=== PATIENT | female | born 1985 | race Caucasian/White ===

== ENCOUNTER 2017-02-13 05:07 | Inpatient (IN) | payer OTHER ==
[2017-02-13] MEDS ORDERED: DEXTROSE 5%-LACTATED RINGERS 1,000 ML IV SCH (06:00)
[2017-02-13] MEDS: ELECTROLYTE-148 SOLN 1,000 ML IV SCH ×2 (08:30→09:30)
[2017-02-13] MEDS: FENTANYL/BUPIVACAINE/NS/PF - PCEA - 50 ML DISP.SYRIN EP SCH ×2 (08:50→18:58)
[2017-02-13 09:30] VITALS: BMI 43.9
[2017-02-13] MEDS ORDERED: VANCOMYCIN 1,000 MG in DEXTROSE 5%-WATER - 250 ML IVPB ONE (09:30)
--- NOTE | 2017-02-13 09:34 | HP ---
Past Medical History - Admission Chief Complaint: Painful contractions since 2 am. History of Present Illness: 31 y/o with SIUP at 38.6 weeks gestation here with complaints of painful contractions since 2 am. No LOF or VB upon admission. Patient has h/o prior for failure to progress/ distress and patient desires TOLAC. uncomplicated. GBS positive with PCN allergy - no sensitivities performed on GBS specimen. HIV negative. 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 Weeks Gestation by Dates: 38.6 ...EDC by Dates: 02/21/17 Heme/Onc: No: Bleeding Disorder, Sickle Cell Trait Psych: No: Bipolar, Depression Endocrine: No: Diabetes Mellitus, Hyperthyroidism - Past Surgical History Past Surgical History: Yes: None Hx Myomectomy: No Hx Transabdominal Cerclage: No - Smoking History Smoking history: Never smoked Have you smoked in the past 12 months: No - Alcohol/Substance Use Hx Alcohol Use: No History of Substance Use: reports: None - Social History Usual Living Arrangement: Yes: With Spouse ADL: Independent Home Medications - Allergies Allergies/Adverse Reactions: Allergies Allergy/AdvReac Type Severity Reaction Status Date / Time pork derived (porcine) Allergy Severe Swelling Verified 02/13/17 08:18 Pork/Porcine Containing Allergy Severe Swelling Verified 02/13/17 08:18 Products shellfish derived Allergy Severe Swelling Verified 02/13/17 08:18 Penicillins Allergy Mild Hives Verified 02/13/17 08:18 ALL FRUIT Allergy Severe Swelling Uncoded 02/13/17 08:18 - Home Medications Home Medications: Ambulatory Orders NK [No Known Home Medication] 02/13/17 Review of Systems - Review of Systems Constitutional: reports: No Symptoms Eyes: reports: No Symptoms HENT: reports: No Symptoms Neck: reports: No Symptoms Cardiovascular: reports: No Symptoms Respiratory: reports: No Symptoms Gastrointestinal: reports: Abdominal Pain (contraction pain) Genitourinary: denies: Vaginal Bleeding Breasts: reports: No Symptoms Reported Musculoskeletal: reports: No Symptoms Integumentary: reports: No Symptoms Neurological: reports: No Symptoms Endocrine: reports: No Symptoms Hematology/Lymphatic: reports: No Symptoms Psychiatric: reports: No Symptoms Physical Exam - Maternity Vital Signs: Vital Signs Temperature 97.9 F 02/13/17 05:37 Pulse Rate 87 02/13/17 05:37 Respiratory Rate 21 02/13/17 05:37 Blood Pressure 123/57 02/13/17 05:37 O2 Sat by Pulse Oximetry (%) Constitutional: Yes: Well Nourished Eyes: Yes: WNL HENT: Yes: WNL Neck: Yes: WNL Cardiovascular: Yes: WNL Lungs: Clear to auscultation Breast(s): Yes: WNL - Abdominal Exam/OB Fundal Height: 39 Number of Fetuses: Single Presentation: Vertex Contractions: Yes Regularity: Regular Intensity: Moderate Monitor Mode: External Heart Rate (range): 125 Category: I Accelerations: Uniform Decelerations: None - Vaginal Exam/OB Vaginal Bleediing: Yes, Light Dilatation (cm): 4 Effacement (%): 70 Amniotic Membrane Status: Bulging Presentation: Vertex/Position Station: -3 - Physical Exam Extremities: Yes: WNL Edema: LLE: Trace, RLE: Trace Psychiatric: Yes: Alert, Oriented Hemorrhage Risk Assessment - Risk Factors Medium Risk Factors: Yes: Prior , uterine surgery,or multiple laparotomies High Risk Factors: Yes: None Risk Score: 1 Risk Level: Medium Risk Problem List - Problems (1) Active labor at term Code(s): AWP8327 - (2) Obesity affecting Code(s): O99.210 - OBESITY COMPLICATING , UNSPECIFIED TRIMESTER (3) Encounter for trial of labor Code(s): O33.9 - MATERNAL CARE FOR DISPROPORTION, UNSPECIFIED (4) GBS (group B Streptococcus carrier), +RV culture, currently Code(s): O99.820 - STREPTOCOCCUS B CARRIER STATE COMPLICATING Assessment/Plan 31 y/o with SIUP at 38.6 weeks gestation, prior c section ,in labor for TOLAC, GBS positive - AFVSS - FHTS cat 1 - active labor at term, desires TOLAC - risks of TOLAC including uterine rupture , hemorrhage, need for emergency c section and possible need for hysterectomy discussed, pt aware, consents for TOLAC signed. Will allow to labor at this time. Expectant management - GBS positive, PCN allergy - hives - no sensitivities on rectovaginal culture completed - will start vancomycin - close monitoring
[2017-02-13 10:09] LABS: BASOPHIL 0.3 % (0-2.0); EOSINOPHIL 0.7 % (0-4.5); MCH 25.5 pg (25.7-33.7); MCHC 32.1 g/dl (32.0-36.0); MEAN CELL VOLUME 79.5 fl (80-96); MEAN PLT VOLUME 7.9 fl (7.5-11.1); NEUTROPHILS 66.9 % (42.8-82.8); PLATELET COUNT 231 K/MM3 (134-434); WHITE BLOOD COUNT 6.3 K/mm3 (4.0-10.0)
[2017-02-13 10:16] LABS: CALCIUM 8.5 mg/dL (8.5-10.1); COCKROFT - GAULT 229.1855; CREATININE 0.6 mg/dL (0.55-1.02)
[2017-02-13 10:20] LABS: INR 1.08 (0.82-1.09); PROTHROMBIN TIME (PATIENT) 11.9 SEC (9.98-11.88)
[2017-02-13 10:23] LABS: ACTIVATED PTT 30.9 SECONDS (26.9-34.4)
--- NOTE | 2017-02-13 14:15 | PN ---
Ante-Partal Exam - Subjective Subjective: pt comfortable with epidural Vital Signs: Vital Signs Temperature 98.2 F 02/13/17 13:56 Pulse Rate 77 02/13/17 13:15 Respiratory Rate 20 02/13/17 13:15 Blood Pressure 126/71 02/13/17 13:15 O2 Sat by Pulse Oximetry (%) 98 02/13/17 13:15 Bleeding: No Headache: No Visual changes: No Right upper quadrant pain: No - Contractions Contractions: Yes Regularity: Regular Intensity: Moderate Monitor Mode: External - Exam during Labor Heart Rate: 125 Variability: Moderate Category: I Monitor Accelerations: Present Monitor Decelerations: None Exam: Vaginal Dilatation (cm): 5 Effacement (%): 70 Amniotic Membrane Status: Intact Nitrazine Test: Positive Amniotic Fluid: Clear Presentation: Vertex Station: -3 - Assessment/Plan Assessment/Plan: 31 y/o with SIUP at 38.6 weeks here in labor, for TOLAC - AFVSS - FHTS cat 1 - TOLAC, continue expectant management. Head not engaged to cervix, no AROm at this time, will await for head to be more applied to cervix - GBS positive, s/p vancomycin X 1 dose, continue current management
[2017-02-13] MEDS ORDERED: VANCOMYCIN 1,000 MG in DEXTROSE 5%-WATER - 250 ML IVPB SCH (21:30)
--- NOTE | 2017-02-13 22:00 | PN ---
Ante-Partal Exam - Subjective Subjective: Pt with contractions & epidural Vital Signs: Vital Signs Temperature 98.2 F 02/13/17 15:00 Pulse Rate 89 02/13/17 18:58 Respiratory Rate 20 02/13/17 18:58 Blood Pressure 106/47 02/13/17 18:58 O2 Sat by Pulse Oximetry (%) 100 02/13/17 18:58 Bleeding: No Headache: No Visual changes: No Right upper quadrant pain: No - Contractions Contractions: Yes Regularity: Irregular Intensity: Mild/Mod Monitor Mode: External - Exam during Labor Variability: Moderate Category: I Monitor Accelerations: Present Monitor Decelerations: None Exam: Vaginal Dilatation (cm): 5 Effacement (%): 100 Amniotic Membrane Status: Intact Presentation: Vertex Station: -2 - Intrapartum Hemorrhage Risk High Risk Factors: None Risk Score: 0 Risk Level: Low Risk - Assessment/Plan Assessment/Plan: TOLAC Active Labor Pt counseled about rupture of uterus, ,and morbidity pt understands and desires TOLAC Prev C/S Cat 1 GBS positive Head not engaged - no rom IUP at 39 week Obese BMI 43.9 Plan Continue TOLAC pt with no progress & pt aware & desires to continue TOLAC risks of rupture reinenforced
--- NOTE | 2017-02-13 23:20 | PN ---
Ante-Partal Exam - Subjective Subjective: Pt comfortable Vital Signs: Vital Signs Temperature 99.1 F 02/13/17 22:00 Pulse Rate 89 02/13/17 18:58 Respiratory Rate 20 02/13/17 18:58 Blood Pressure 106/47 02/13/17 18:58 O2 Sat by Pulse Oximetry (%) 100 02/13/17 18:58 Bleeding: No Headache: No Visual changes: No Right upper quadrant pain: No - Contractions Contractions: Yes Regularity: Regular Intensity: Mild/Mod Monitor Mode: External - Exam during Labor Variability: Moderate Category: I Monitor Accelerations: Absent Monitor Decelerations: None Exam: Vaginal Dilatation (cm): 6 Effacement (%): 100 Amniotic Membrane Status: Intact Presentation: Vertex Station: -2 - Assessment/Plan Assessment/Plan: TOLAC iup at 38.6 weeks gbs positive + epidural Cat 1 Plan Pt making progress continue present management Pt & desire to continue TOLAC
[2017-02-14] MEDS ORDERED: morphine SULFATE/Preservative Free 0.5 MG/ML (1cc Syringe) EP ONE (04:06)
[2017-02-14] MEDS ORDERED: IBUPROFEN 600 MG TABLET (FP) PO PRN ×2 (04:09→04:50)
[2017-02-14] MEDS ORDERED: ACETAMINOPHEN 325 MG TABLET (FP) PO PRN (04:09)
[2017-02-14] MEDS ORDERED: ONDANSETRON 4 MG/2 ML VIAL IVPB PRN (04:09)
--- NOTE | 2017-02-14 04:39 | PN ---
Progress Note (SOAP) - Subjective Chief Complaint: Pt with desire to do CS if head has not come down - Current Medications Current Medications: Active Medications Acetaminophen (Tylenol -) 650 mg PO Q4H PRN PRN Reason: FEVER OR PAIN Diphenhydramine HCl (Benadryl Injection -) 25 mg IVPUSH Q4H PRN PRN Reason: Pruritis Diphenhydramine HCl (Benadryl Injection -) 25 mg IVPUSH ONCE ONE Stop: 02/14/17 04:10 Diphenhydramine HCl (Benadryl Injection -) 25 mg IVPUSH ONCE ONE Stop: 02/14/17 05:10 Fentanyl/Bupivacaine/Sodium Chlor (Bupivicaine 0.125%/Fentanyl 2mcg/Ml Pcea -) 0 ml EP ASDIR VERONICA PRN Reason: Protocol Last Admin: 02/13/17 18:58 Dose: 10 ml Parenteral Electrolytes (Plasma-Lyte 148 -) 1,000 mls @ 125 mls/hr IV ASDIR [facility] Last Admin: 02/13/17 09:30 Dose: 125 mls/hr Vancomycin HCl 1,000 mg/ (Dextrose) 250 mls @ 166.667 mls/hr IVPB Q12H VERONICA PRN Reason: Protocol Ibuprofen (Motrin -) 600 mg PO Q4H PRN PRN Reason: PAIN Morphine Sulfate (Duramorph) 4 mg EP ONCE ONE Stop: 02/14/17 04:07 Ondansetron HCl (Zofran Injection) 4 mg IVPB Q4H PRN PRN Reason: NAUSEA Stop: 02/14/17 12:10 - Objective Vital Signs: Vital Signs Temperature 98.1 F 02/14/17 02:00 Pulse Rate 89 02/13/17 18:58 Respiratory Rate 20 02/13/17 18:58 Blood Pressure 106/47 02/13/17 18:58 O2 Sat by Pulse Oximetry (%) 100 02/13/17 18:58 Constitutional: Yes: Well Nourished, No Distress Gastrointestinal: Yes: Abdomen, Obese Genitourinary: Yes: Other (Cat 1 head not engaged not ruptured no descend FD) Labs Lab Results: CBC, BMP 02/13/17 09:10 02/13/17 09:10 Assessment/Plan Failure TOLAC iup at 39 week BMI 43.9 Prev CS Plan Repeat CS
[2017-02-14] MEDS ORDERED: METHYLERGONOVINE MALEATE 0.2 MG/1 ML AMP IM PRN (04:50)
--- NOTE | 2017-02-14 04:50 | OP ---
Operative Note - Note: Operative Date: 02/14/17 Pre-Operative Diagnosis: Failed . Obesity. previous Section Operation: Repeat Section Findings: Live male infant Nuchal cord x 1 normal tubes & ovaries Post-Operative Diagnosis: Same as Pre-op Surgeon: Brunilda Chu Shaper Operator: Tobi Guillory Anesthesia: Epidural Specimens Removed: placenta Estimated Blood Loss (mls): 600 Operative Report Dictated: Yes
--- NOTE | 2017-02-14 05:28 | OP ---
DATE OF OPERATION: 02/14/2017 PREOPERATIVE DIAGNOSIS: Failed trial of labor after section, obesity, and previous section, intrauterine at 39 weeks. OPERATION: Repeat low transverse section. FINDINGS: Live male with nuchal cord x1. POSTOPERATIVE DIAGNOSIS: Live male infant with nuchal cord x1, failed trial of labor after section, obesity, and previous section, intrauterine at 39 weeks. SURGEON: Brunilda Chu MD AGRISCIENCE TECHNOLOGY INSTRUCTOR: CHARLOTTE Boone. unavailable. ANESTHESIA: Epidural. PROCEDURE: Patient was taken to the operating room, placed in supine position, prepped and draped in the usual sterile fashion. After epidural anesthesia had been established, a Pfannenstiel skin incision after time-out had been performed in accordance with hospital regulations. Cautery was then used to go through the layers of the abdominal wall to the level of the fascia. Fascia was cut. Cautery was then used to cut the fascia in smiling fashion. Marlo was then used to bluntly and sharply dissect the rectus muscle of the fascia. The muscle was split in the midline. Peritoneal cavity was entered and carried up and downwards. Bladder retractor was then placed, and scalpel was then used to make a low transverse uterine incision. Incision was carried up with use of bandage scissors. A live male was delivered. Nuchal cord x1 reduced. Shoulders were delivered without difficulty. The cord was clamped and cut. Cord blood obtained. Infant was handed to the light industrial supervisor. Cord pH obtained. Placenta was manually extracted from the uterus. The uterus was exteriorized and cleaned with clean lap pads. Uterine incision was then closed using 0 Biosyn suture, first layer continuous and locking, second layer imbricating the first layer. Hemostasis was achieved using figure-of-8 sutures. Uterus interiorized. Abdominal cavity cleaned with clean lap pads. Peritoneum closed using 0 Biosyn suture. Fascia was then closed using 0 Vicryl suture in 2 parts. Skin was then closed using 3-0 Vicryl in subcuticular fashion. Wounds washed and dressed. Patient tolerated the procedure well, was taken to the recovery room in stable condition. ESTIMATED BLOOD LOSS: 600 mL. Charisse AQUINO/[id number]
[2017-02-14 05:40] LABS: ARTERIAL BLOOD GAS pH 7.36 (7.35-7.45)
[2017-02-14 05:41] LABS: ARTERIAL BLD GAS O2 SATURATION 58.2 % (90-98.9); ARTERIAL BLOOD GAS BASE EXCESS -1.4 meq/l (-2-2); ARTERIAL BLOOD GAS HCO3 23.8 meq/L (22-26)
[2017-02-14 05:43] LABS: ARTERIAL BLOOD GAS PO2 27.6 mmHg (80-100)
[2017-02-14 05:48] LABS: VENOUS BLOOD GAS HCO3 24.9 meq/L (19-25); VENOUS PH 7.29 (7.32-7.42)
[2017-02-14] MEDS: IBUPROFEN 800 MG/8 ML IJ IVPB PRN ×2 (09:56→21:29)
[2017-02-14] MEDS: ELECTROLYTE-148 SOLN 1,000 ML IV SCH (12:03)
[2017-02-14] MEDS: CLINDAMYCIN 600MG PREMIX IVPB 50 ML IVPB SCH ×3 (12:03→22:20)
[2017-02-14] MEDS: FENTANYL/BUPIVACAINE/NS/PF - PCEA - 50 ML DISP.SYRIN EP SCH (19:38)
[2017-02-15] MEDS: ACETAMINOPHEN 650 MG/20.3 ML ORAL SOLUTION (CUPS) PO PRN ×4 (03:59→21:02)
[2017-02-15] MEDS: IBUPROFEN 100 MG/5 ML UNIT DOSE CUPS PO PRN ×4 (03:59→21:03)
[2017-02-15] MEDS ORDERED: BISACODYL 10 MG SUPP.RECT RC PRN (04:50)
[2017-02-15] MEDS ORDERED: oxyCODONE HCL 5 MG TABLET PO PRN (04:54)
[2017-02-15 07:16] LABS: BASOPHIL 0.2 % (0-2.0); EOSINOPHIL 0.5 % (0-4.5); MCH 25.7 pg (25.7-33.7); MCHC 32.2 g/dl (32.0-36.0); MEAN CELL VOLUME 79.8 fl (80-96); MEAN PLT VOLUME 7.7 fl (7.5-11.1); NEUTROPHILS 71.9 % (42.8-82.8); PLATELET COUNT 208 K/MM3 (134-434); RDW 15.9 % (11.6-15.6); WHITE BLOOD COUNT 10.2 K/mm3 (4.0-10.0)
--- NOTE | 2017-02-15 07:58 | PN ---
Post Progress Note - Subjective Subjective: Pt seen/evaluated and doing well. Pain controlled, tolerating diet. Having some slight nausea this morning, but no vomiting. VB minimal. Ambulating and voiding without difficulty. No flatus yet. Denies CP/SOB/F/C/VARELA or any other complaints. Type of Delivery: Repeat C/S Vital Signs: Vital Signs Temperature 98.6 F 02/15/17 02:00 Pulse Rate 85 02/15/17 02:00 Respiratory Rate 18 02/15/17 06:00 Blood Pressure 100/50 02/15/17 02:00 O2 Sat by Pulse Oximetry (%) 98 02/14/17 05:45 Breast Exam: Yes: Soft Uterus: Yes: Fundus @ umbilicus Incision: Yes: Dressing dry and intact Abdomen/GI: Yes: Abdomen soft, Tender, Tolerating PO. No: Abdominal Distention , Passing flatus Lochia: Yes: Rubra Lochia, amount: Moderate Extremities: Yes: Calves non-tender, Edema (1+ LE Edema bilaterally - non pitting) Perineum: Yes: Intact Activity: Ambulating - Labs Labs: CBC WBC 10.2 K/mm3 (4.0-10.0) H D 02/15/17 06:35 RBC 3.88 M/mm3 (3.60-5.2) 02/15/17 06:35 Hgb 10.0 GM/dL (10.7-15.3) L 02/15/17 06:35 Hct 30.9 % (32.4-45.2) L 02/15/17 06:35 MCV 79.8 fl (80-96) L 02/15/17 06:35 MCHC 32.2 g/dl (32.0-36.0) 02/15/17 06:35 RDW 15.9 % (11.6-15.6) H 02/15/17 06:35 Plt Count 208 K/MM3 (134-434) 02/15/17 06:35 MPV 7.7 fl (7.5-11.1) 02/15/17 06:35 Neutrophils % 71.9 % (42.8-82.8) 02/15/17 06:35 Lymphocytes % 16.0 % (8-40) D 02/15/17 06:35 Monocytes % 11.4 % (3.8-10.2) H 02/15/17 06:35 Eosinophils % 0.5 % (0-4.5) 02/15/17 06:35 Basophils % 0.2 % (0-2.0) 02/15/17 06:35 Problem List - Problems (1) Active labor at term Code(s): DKM7119 - (2) Obesity affecting Code(s): O99.210 - OBESITY COMPLICATING , UNSPECIFIED TRIMESTER (3) Encounter for trial of labor Code(s): O33.9 - MATERNAL CARE FOR DISPROPORTION, UNSPECIFIED (4) GBS (group B Streptococcus carrier), +RV culture, currently Code(s): O99.820 - STREPTOCOCCUS B CARRIER STATE COMPLICATING (5) delivery delivered Code(s): O82 - ENCOUNTER FOR DELIVERY WITHOUT INDICATION Assessment/Plan 31 y/o POD#1 s/p repeat delivery for failed TOLAC - AFVSS - Hgb 10.0 post op, continue vitamins, pt asymptomatic - advance diet as tolerated - encourage ambulation - routine post op care
[2017-02-15] MEDS ORDERED: ONDANSETRON *ODT* 4 MG TABLET SL PRN (07:59)
[2017-02-15] MEDS: PRENATAL VITAMINS W/ FOLIC ACID TABLET (FP) PO SCH (10:57)
[2017-02-15] MEDS: SIMETHICONE 80 MG TAB.CHEW (FP) PO PRN ×3 (11:46→21:02)
[2017-02-15] MEDS ORDERED: DIPHTH,PERTUSS(ACELL),TET 0.5 ML DISP.SYRIN IM ONE (11:58)
--- NOTE | 2017-02-15 11:59 | PN ---
Progress Note (short form) - Note Progress Note: Anesthesia post op note. S/P , Under eoidural with duramorph. POD#1. Pat seen and examined. ambulating, tolerating po, Pain controlled. VSS no apparent post anesthesia complications. Signed off.
[2017-02-16] MEDS: ACETAMINOPHEN 650 MG/20.3 ML ORAL SOLUTION (CUPS) PO PRN ×4 (01:15→21:40)
[2017-02-16] MEDS: IBUPROFEN 100 MG/5 ML UNIT DOSE CUPS PO PRN ×4 (01:17→21:38)
[2017-02-16] MEDS: SIMETHICONE 80 MG TAB.CHEW (FP) PO PRN ×4 (01:17→21:42)
[2017-02-16] MEDS: PRENATAL VITAMINS W/ FOLIC ACID TABLET (FP) PO SCH (10:06)
--- NOTE | 2017-02-16 13:57 | PATH ---
Surgical Pathology Report Patient Name: SARIAH IVEY Med. Rec. #: [id number] /Age/Gender: 1985 (Age: 31) / F Account: [id number] Location: [facility] OBS/INSPECTOR FILTER TIP Taken: 02/14/2017 Received: 02/14/2017 Reported: 02/16/2017 Physicians: Christa Henning M.D. Specimen(s) Received PLACENTA Clinical History , 39 weeks gestation; failed trialed Repeat c/section Final Diagnosis PLACENTA, DELIVERY: FOCALLY DISRUPTED THIRD TRIMESTER PLACENTA WITH MODERATE PREVILLOUS, PERIVILLOUS, AND PRECHORIONIC FIBRIN DEPOSITION, THREE VESSEL UMBILICAL CORD, AND UNREMARKABLE PLACENTAL MEMBRANES. Electronically Signed Joseph Briseno M.D. Gross Description The specimen is received fresh, labeled "placenta" and is a 536 gram, 20.5 x 17.5 x 2.2 cm placenta with attached membranes and umbilical cord. The attached membranes are sanford, translucent with focal opacities and insert marginally. The umbilical cord measures 13 cm in length and averages 1 cm in diameter. The cord inserts eccentrically, 4 cm to the nearest margin. No true knots or strictures are identified. Cut surface of the umbilical cord reveals 3 vessels. The surface is gagnon-blue with fibrin deposition and appropriate caliber vessels. The maternal surface is red-brown with focal defects. Sectioning reveals red-brown, spongy parenchyma. No focal lesions are identified. Administrator Social Welfare sections are submitted in three cassettes as follows: 1- membrane rolls and umbilical cord; 2-3- full thickness sections of placenta. 02/15/2017 [facility]02/15/2017
--- NOTE | 2017-02-16 14:59 | DS ---
Physical Exam-MEETING/EVENT PLANNER Vital Signs: Vital Signs Temperature 98.4 F 02/16/17 10:00 Pulse Rate 81 02/16/17 10:00 Respiratory Rate 18 02/16/17 10:00 Blood Pressure 122/71 02/16/17 10:00 O2 Sat by Pulse Oximetry (%) 98 02/14/17 05:45 Labs: CBC, BMP 02/15/17 06:35 02/13/17 09:10 Delivery - Delivery Type of Anesthesia: Epidural EBL (cc): 500 Delivery, Single - Stages of Labor Date of Delivery: 02/14/17 Time of Delivery: 03:55 Time Placenta Delivered: 03:56 - Condition of Polisher And Buffer/Semiconductors Wafer Breaker Present: Yes Name: Zonia Anderson Gender: Male Weight: 8 lb 2 oz Position: OP Total Hours ROM (Hrs/Mins): 1MIN. - 1 Minute Total Score: 9 5 Minutes Total Score: 9 - Feeding Plan Initial Plan: Exclusive throughout hospitalization Discharge Summary Reason For Visit: LABOR Current Active Problems Active labor at term (Acute) delivery delivered (Acute) Encounter for trial of labor (Acute) GBS (group B Streptococcus carrier), +RV culture, currently (Acute) Obesity affecting (Acute) Condition: Good - Instructions Diet, Activity, Other Instructions: Physical activity Resume your normal everyday activity as tolerated but no heavy lifting or strenuou exercise until seen by your surgeon. You may walk unlimited amounts and climb stairs. You may resume driving the car when you feel safe and comfortable behind the wheel. No sexual activity as instructed. Wound care If there are tapes on the skin under leave them in place. They will peel off in the next 7 to 10 days. Do Not Peel them off. You may shower the day after surgery. If there are tapes present on the skin, you may shower over them. Diet There are no dietary restrictions. Eat healthy, high-fiber foods. Drink 6 to 8 glasses of liquid each day. This will assist in keeping your bowels regular. Pain management You may take Tylenol = or Ibuprofen (for example, Motrin, Advil etc.) for mild pain. If any narcotic pain medication is ordered, it should be taken as prescribed for moderate to severe pain. Call MD for any of the following: Severe pain not relieved by medication Fever of 101 or higher Excessive bleeding or drainage on dressing Inability to urinate Referrals: Brunilda Chu MD [Staff Physician] - 1 Week Disposition: HOME - Home Medications Comprehensive Discharge Medication List: Ambulatory Orders Ibuprofen [Motrin -] 600 mg PO QID PRN #28 tablet 02/16/17 Oxycodone HCl/Acetaminophen [Percocet 5-325 mg Tablet -] 1 tab PO Q4H #30 tablet MDD 6 02/16/17
--- NOTE | 2017-02-16 14:59 | PN ---
Post Progress Note - Subjective Subjective: Pt seen/examined and doing well. Pain controlled, tolerating diet. Ambulating voiding and passing flatus. Denies CP/SOB/F/C/VARELA. No other complaints/issues. Type of Delivery: Repeat C/S Vital Signs: Vital Signs Temperature 98.4 F 02/16/17 10:00 Pulse Rate 81 02/16/17 10:00 Respiratory Rate 18 02/16/17 10:00 Blood Pressure 122/71 02/16/17 10:00 O2 Sat by Pulse Oximetry (%) 98 02/14/17 05:45 Uterus: Yes: Fundus Firm, Fundus below umbilicus Incision: Yes: Dressing dry and intact Abdomen/GI: Yes: Abdomen soft, Tender (appropriate post surgical tenderness), Passing flatus, Tolerating PO. No: Abdominal Distention Lochia: Yes: Rubra Lochia, amount: Small Extremities: Yes: Calves non-tender, Edema (1+ LE edema) Perineum: Yes: Intact Activity: Ambulating - Labs Labs: CBC WBC 10.2 K/mm3 (4.0-10.0) H D 02/15/17 06:35 RBC 3.88 M/mm3 (3.60-5.2) 02/15/17 06:35 Hgb 10.0 GM/dL (10.7-15.3) L 02/15/17 06:35 Hct 30.9 % (32.4-45.2) L 02/15/17 06:35 MCV 79.8 fl (80-96) L 02/15/17 06:35 MCHC 32.2 g/dl (32.0-36.0) 02/15/17 06:35 RDW 15.9 % (11.6-15.6) H 02/15/17 06:35 Plt Count 208 K/MM3 (134-434) 02/15/17 06:35 MPV 7.7 fl (7.5-11.1) 02/15/17 06:35 Neutrophils % 71.9 % (42.8-82.8) 02/15/17 06:35 Lymphocytes % 16.0 % (8-40) D 02/15/17 06:35 Monocytes % 11.4 % (3.8-10.2) H 02/15/17 06:35 Eosinophils % 0.5 % (0-4.5) 02/15/17 06:35 Basophils % 0.2 % (0-2.0) 02/15/17 06:35 Problem List - Problems (1) Active labor at term Code(s): PFJ2147 - (2) Obesity affecting Code(s): O99.210 - OBESITY COMPLICATING , UNSPECIFIED TRIMESTER (3) Encounter for trial of labor Code(s): O33.9 - MATERNAL CARE FOR DISPROPORTION, UNSPECIFIED (4) GBS (group B Streptococcus carrier), +RV culture, currently Code(s): O99.820 - STREPTOCOCCUS B CARRIER STATE COMPLICATING (5) delivery delivered Code(s): O82 - ENCOUNTER FOR DELIVERY WITHOUT INDICATION Assessment/Plan 31 y/o POD#2 s/p repeat delivery for failed TOLAC - AFVSS - Hgb 10.0 post op, continue vitamins, pt asymptomatic - advance diet as tolerated - encourage ambulation - routine post op care -plan for discharge home in a.m. if stable
[2017-02-17] MEDS: ACETAMINOPHEN 650 MG/20.3 ML ORAL SOLUTION (CUPS) PO PRN ×3 (03:20→12:05)
[2017-02-17] MEDS: IBUPROFEN 100 MG/5 ML UNIT DOSE CUPS PO PRN ×3 (03:21→12:05)
[2017-02-17] MEDS: SIMETHICONE 80 MG TAB.CHEW (FP) PO PRN ×3 (03:23→12:02)
[2017-02-17 08:06] LABS: BASOPHIL 0.4 % (0-2.0); MCH 25.3 pg (25.7-33.7); MCHC 31.8 g/dl (32.0-36.0); MEAN CELL VOLUME 79.5 fl (80-96); MEAN PLT VOLUME 7.9 fl (7.5-11.1); NEUTROPHILS 52.8 % (42.8-82.8); PLATELET COUNT 232 K/MM3 (134-434); RDW 16.2 % (11.6-15.6); WHITE BLOOD COUNT 6.5 K/mm3 (4.0-10.0)
[2017-02-17] MEDS: PRENATAL VITAMINS W/ FOLIC ACID TABLET (FP) PO SCH (10:12)
[2017-02-17 12:27] VITALS: BP 114/68; PULSE 70; TEMP 98.6
== END 2017-02-17 12:15 | disposition home or self-care (01) | DRG 765 ==
LOC: JDEL 05:07 → JLDR 07:55 → J3W 02-14 08:10
PROVIDERS: ADMIT Obstetrics & Gynecology; ATTEND Obstetrics & Gynecology
PROC: 10D00Z1 Extraction of Products of Conception, Low, Open Approach (ICD-10-PCS; principal; 2017-02-14)
DX: O34.211 Maternal care for low transverse scar from previous cesarean delivery (principal); Z68.41 Body mass index [BMI] 40.0-44.9, adult; N85.8 Other specified noninflammatory disorders of uterus; Z3A.39 39 weeks gestation of pregnancy; O99.213 Obesity complicating pregnancy, third trimester; E66.9 Obesity, unspecified; Z22.330 Carrier of Group B streptococcus; Z37.0 Single live birth
CPT/HCPCS: 36415; 36600; 80048; 82803; 85025; 85610; 85730; 86593; 86850; 86900; 86901; 88307-TC; 90715